=== PATIENT | female | born 1995 | race African-American/Black ===

== ENCOUNTER 2017-06-11 17:15 | Emergency (ER) | payer OTHER ==
[2017-06-11] MEDS ORDERED: FAMOTIDINE 20 MG/50 ML IVPB 20 MG/50 ML MG IVPB ONE ×2 (17:17→17:50)
[2017-06-11] MEDS ORDERED: SODIUM CHLORIDE 1,000 ML IV STA (17:17)
[2017-06-11] MEDS ORDERED: methylPREDNISolone NA SUCC 125 MG/2 ML VIAL IVPB ONE (17:17)
[2017-06-11 17:19] VITALS: BP 151/92; PULSE 97; TEMP 98.6; BMI 23.6
--- NOTE | 2017-06-11 17:22 | PDOC ---
Rapid Medical Evaluation Chief Complaint: Allergic Reaction Time Seen by Provider: 06/11/17 17:15 Medical Evaluation: Allergies Allergy/AdvReac Type Severity Reaction Status Date / Time No Known Allergies Allergy Verified 08/29/12 09:49 06/11/17 17:18 The patient presents with a chief complaint of: [Itching to the eyes, weird sensation in throat, shakiness, had dental surgery today. Is allergic to PCN, took amoxicillin at 4:30pm. Allergic reaction. ] I have performed a brief in-person evaluation of this patient. Pertinent physical exam findings: vss, [Right sided Facial edema ( from surgery )? Lungs clear, RRR. Erythema to chest. Wheal to face. ] I have ordered the following: [Labs, IV, Saline lock, Pepcid, solumedrol, benadryl. ] The patient will proceed to the ED for further evaluation. Discharge Disposition - Diagnosis Allergic reaction - Referrals - Patient Instructions - Post Discharge Activity
[2017-06-11] MEDS ORDERED: predniSONE 20 MG TABLET (UD) PO ONE (17:41)
[2017-06-11] MEDS ORDERED: predniSONE 20 MG TABLET (UD) ONE (17:50)
[2017-06-11] MEDS ORDERED: DEXAMETHASONE SOD PHOSPHATE 20 MG/5 ML VIAL IVPB ONE (17:58)
--- NOTE | 2017-06-11 18:08 | PDOC ---
History of Present Illness - History of Present Illness Initial Comments: 06/11/17 18:18 The patient is a 21 year old female with no significant PMH who presents to the emergency department with an allergic reaction today. The patient has a known allergy to penicillins. The patient reports throat itching, hives, and itchiness after taking amoxicillin today. The patient denies fever, chills, nausea, vomit, diarrhea and constipation. Allergies: NKA Past surgical history: None reported. Social history: No reported alcohol, cigarette or drug use. PCP: Dr. Shearer <Odalis Gonsalves - Last Filed: 06/11/17 18:21> - General History Source: Patient, Family Exam Limitations: No Limitations <Freedom Gallagher - Last Filed: 06/11/17 18:57> - General Chief Complaint: Allergic Reaction Stated Complaint: ALLERGIC REACTION Time Seen by Provider: 06/11/17 17:15 Past History <Odalis Gonsalves - Last Filed: 06/11/17 18:21> - Past Medical History COPD: No - Suicide/Smoking/Psychosocial Hx Smoking Status: No Smoking History: Never smoked Have you smoked in the past 12 months: No Number of Cigarettes Smoked Daily: 0 Information on smoking cessation initiated: No Hx Alcohol Use: No Drug/Substance Use Hx: No Substance Use Type: None <Freedom Gallagher - Last Filed: 06/11/17 18:57> - Past Medical History Allergies/Adverse Reactions: Allergies Allergy/AdvReac Type Severity Reaction Status Date / Time Penicillins Allergy Verified 06/11/17 17:20 Home Medications: Ambulatory Orders Ibuprofen [Motrin] 400 mg PO QID #20 tablet 08/29/12 No Home Medications 0 dose .ROUTE UTDICT 08/29/12 Review of Systems - Review of Systems Able to Perform ROS?: Yes Comments:: 06/11/17 18:21 GENERAL/CONSTITUTIONAL: No fever or chills. No weakness. HEAD, EYES, EARS, NOSE AND THROAT: No change in vision. No ear pain or discharge. No sore throat. CARDIOVASCULAR: No chest pain or shortness of breath. RESPIRATORY: No cough, wheezing, or hemoptysis. GASTROINTESTINAL: No nausea, vomiting, diarrhea or constipation. GENITOURINARY: No dysuria, frequency, or change in urination. MUSCULOSKELETAL: No joint or muscle swelling or pain. No neck or back pain. SKIN: No rash NEUROLOGIC: No headache, vertigo, loss of consciousness, or change in strength/ sensation. ENDOCRINE: No increased thirst. No abnormal weight change. HEMATOLOGIC/LYMPHATIC: No anemia, easy bleeding, or history of blood clots. ALLERGIC/IMMUNOLOGIC: (+) Itchiness. (+) Hives. <Odalis Gonsalves - Last Filed: 06/11/17 18:21> *Physical Exam - Vital Signs Last Vital Signs Temp Pulse Resp BP Pulse Ox 98.6 F 97 H 18 151/92 100 06/11/17 17:17 06/11/17 17:17 06/11/17 17:17 06/11/17 17:17 06/11/17 17:17 - Physical Exam Comments: 06/11/17 18:09 GENERAL: Awake, alert, and fully oriented, in no acute distress HEAD: No signs of trauma EYES: PERRLA, EOMI, sclera anicteric, conjunctiva clear ENT: Auricles normal inspection, hearing grossly normal, nares patent, oropharynx clear without exudates. Moist mucosa NECK: Normal ROM, supple, no lymphadenopathy, JVD, or masses LUNGS: Breath sounds equal, clear to auscultation bilaterally. No wheezes, and no crackles HEART: Regular rate and rhythm, normal S1 and S2, no murmurs, rubs or gallops ABDOMEN: Soft, nontender, normoactive bowel sounds. No guarding, no rebound. No masses EXTREMITIES: Normal range of motion, no edema. No clubbing or cyanosis. No cords, erythema, or tenderness NEUROLOGICAL: Cranial nerves II through XII grossly intact. Normal speech. SKIN: Warm, Dry, normal turgor, no rashes or lesions noted. <Odalis Gonsalves - Last Filed: 06/11/17 18:21> - Vital Signs Last Vital Signs Temp Pulse Resp BP Pulse Ox 98.6 F 97 H 18 151/92 100 06/11/17 17:17 06/11/17 17:17 06/11/17 17:17 06/11/17 17:17 06/11/17 17:17 <Freedom Gallagher - Last Filed: 06/11/17 18:57> ED Treatment Course - Medications Given in the ED: ED Medications Discontinued Medications Generic Name Dose Route Start Last Admin Trade Name Freq PRN Reason Stop Dose Admin Diphenhydramine HCl 50 mg 06/11/17 17:17 06/11/17 17:55 Benadryl Injection - IVPB 06/11/17 17:18 50 mg ONCE ONE Administration Famotidine/Sodium Chloride 20 mg in 50 mls @ 100 mls/hr 06/11/17 17:17 17:56 Pepcid 20 Mg Premixed Ivpb - IVPB 06/11/17 17:46 100 mls/hr ONCE ONE Administration Methylprednisolone Sodium Succinate 125 mg 06/11/17 17:17 06/11/17 17:56 Solu-Medrol - IVPB 06/11/17 17:18 Not Given ONCE ONE Prednisone 60 mg 06/11/17 17:41 06/11/17 17:56 Deltasone - PO 06/11/17 17:42 60 mg ONCE ONE Administration <Odalis Gonsalves - Last Filed: 06/11/17 18:21> - Medications Given in the ED: ED Medications Discontinued Medications Generic Name Dose Route Start Last Admin Trade Name Freq PRN Reason Stop Dose Admin Diphenhydramine HCl 50 mg 06/11/17 17:17 06/11/17 17:55 Benadryl Injection - IVPB 06/11/17 17:18 50 mg ONCE ONE Administration Famotidine/Sodium Chloride 20 mg in 50 mls @ 100 mls/hr 06/11/17 17:17 17:56 Pepcid 20 Mg Premixed Ivpb - IVPB 06/11/17 17:46 100 mls/hr ONCE ONE Administration Methylprednisolone Sodium Succinate 125 mg 06/11/17 17:17 06/11/17 17:56 Solu-Medrol - IVPB 06/11/17 17:18 Not Given ONCE ONE Prednisone 60 mg 06/11/17 17:41 06/11/17 17:56 Deltasone - PO 06/11/17 17:42 60 mg ONCE ONE Administration <Freedom Gallagher - Last Filed: 06/11/17 18:57> Medical Decision Making - Medical Decision Making 06/11/17 18:04 A portion of this note was documented by scribe services under my direction. I have reviewed the details of the note, within reason, and agree with the documentation with the following case summary and management plan written by me. Patient treated in the ED. Nursing notes are reviewed and incorporated into the medical decision-making. Vital signs reviewed. Peripheral IV access obtained by the nurse, laboratory studies are drawn and sent, reviewed and interpreted by myself. Vital Signs Temp Pulse Resp BP Pulse Ox 98.6 F 97 H 18 151/92 100 06/11/17 17:17 06/11/17 17:17 06/11/17 17:17 06/11/17 17:17 06/11/17 17:17 21-year-old female with no past medical history presents with ALLERGIC reaction. The patient underwent a dental procedure and was given a prescription amoxicillin. The patient has a history of penicillin ALLERGY. After taking amoxicillin she started developing throat itching and hives and itchiness. Denies vomiting, chest pain. Patient's oropharynx is clear and is no evidence of swelling. We'll need to give steroids, Benadryl, Pepcid, IV fluids and reassess. We'll observe the patient at the symptoms are improved and there is no evidence of anaphylaxis, the patient can be discharged. I instructed patient to stop taking amoxicillin. 06/11/17 18:57 Case signed out to Dr. Rueda for further management and disposition. <Freedom Gallagher - Last Filed: 06/11/17 18:57> *DC/Admit/Observation/Transfer - Attestations Scribe Attestion: 06/11/17 18:10 Documentation prepared by Odalis Gonsalves, acting as medical coding auditor for Freedom Gallagher MD. <Odalis Gonsalves - Last Filed: 06/11/17 18:21> <Freedom Gallagher - Last Filed: 06/11/17 18:57> Diagnosis at time of Disposition: Allergic reaction - Referrals Referrals: Zoe Shearer MD [Primary Care Provider] -
[2017-06-11] MEDS ORDERED: DEXAMETHASONE SOD PHOSPHATE 10 MG/1 ML VIAL ONE (19:15)
--- NOTE | 2017-06-11 21:05 | PDOC ---
*Physical Exam - Vital Signs Last Vital Signs Temp Pulse Resp BP Pulse Ox 98.6 F 97 H 18 151/92 100 06/11/17 17:17 06/11/17 17:17 06/11/17 17:17 06/11/17 17:17 06/11/17 17:17 - Physical Exam Vascular Pulses: Femoral (R): 4+, Femoral (L): 4+, Carotid (R): 4+, Carotid (L) : 4+, Dorsalis-Pedis (R): 4+, Doralis-Pedis (L): 4+ Deep Tendon Reflexes: Ankle (L): 0 ED Treatment Course - Medications Given in the ED: ED Medications Discontinued Medications Generic Name Dose Route Start Last Admin Trade Name Booneq PRN Reason Stop Dose Admin Dexamethasone Sodium Phosphate 10 mg 06/11/17 17:58 06/11/17 19:18 Decadron Injection - IVPB 06/11/17 17:59 10 mg ONCE ONE Administration Diphenhydramine HCl 50 mg 06/11/17 17:17 06/11/17 17:55 Benadryl Injection - IVPB 06/11/17 17:18 50 mg ONCE ONE Administration Famotidine/Sodium Chloride 20 mg in 50 mls @ 100 mls/hr 06/11/17 17:17 17:56 Pepcid 20 Mg Premixed Ivpb - IVPB 06/11/17 17:46 100 mls/hr ONCE ONE Administration Sodium Chloride 1,000 mls @ 1,000 mls/hr 06/11/17 17:17 06/11/17 17:56 Normal Saline - IV 06/11/17 18:16 1,000 mls/hr ASDIR STA Administration Methylprednisolone Sodium Succinate 125 mg 06/11/17 17:17 06/11/17 17:56 Solu-Medrol - IVPB 06/11/17 17:18 Not Given ONCE ONE Prednisone 60 mg 06/11/17 17:41 06/11/17 17:56 Deltasone - PO 06/11/17 17:42 60 mg ONCE ONE Administration Medical Decision Making - Medical Decision Making 06/11/17 20:59 Pt seen/examined. Sxs have completely resolved, feeling well, wishes to go home. No SOB, no rash, clear oropharynx, clear lungs. Will prescribe epi pen and prednisone 40mg daily x4 days. Told to avoid penicillin/amoxicillin in the future. Stable for discharge. *DC/Admit/Observation/Transfer Diagnosis at time of Disposition: Allergic reaction - Discharge Dispostion Disposition: HOME Condition at time of disposition: Improved Admit: No - Prescriptions Prescriptions: Epinephrine (Epi-Pen 0.3MG) [Epipen 0.3MG -] 0.3 mg IM ASDIR #2 pens Prednisone [Deltasone -] 40 mg PO DAILY 4 Days #4 tablet - Referrals Referrals: Zoe Shearer MD [Primary Care Provider] - - Patient Instructions Printed Discharge Instructions: DI for Adverse Drug Reaction -- Allergic Additional Instructions: You were seen in the ER for allergic reaction to penicillin (amoxicillin). NEVER TAKE THIS MEDICATION AGAIN. Take 40mg of prednisone for the next 4 days. You have also been prescribed an epipen. Please use it if you have a severe allergic reaction in the future. Follow up with your primary care doctor. Return to the ER if you have shortness of breath or worsening symptoms. - Post Discharge Activity
== END 2017-06-11 21:38 | disposition home or self-care (01) ==
LOC: JER 17:15
PROC: 3E033GC Introduction of Other Therapeutic Substance into Peripheral Vein, Percutaneous Approach (ICD-10-PCS; principal; 2017-06-11)
PROC: 3E033GC Introduction of Other Therapeutic Substance into Peripheral Vein, Percutaneous Approach (ICD-10-PCS; 2017-06-11)
PROC: 3E0333Z Introduction of Anti-inflammatory into Peripheral Vein, Percutaneous Approach (ICD-10-PCS; 2017-06-11)
DX: L50.0 Allergic urticaria (principal); T36.0X5A Adverse effect of penicillins, initial encounter; Y92.89 Other specified places as the place of occurrence of the external cause; Z88.0 Allergy status to penicillin
CPT/HCPCS: 96365; 96375; 99282-25

== ENCOUNTER 2018-07-07 19:29 | Emergency (ER) | payer OTHER ==
[2018-07-07 19:39] VITALS: BP 125/71; PULSE 100; TEMP 98.2; BMI 25.4
[2018-07-07] MEDS ORDERED: DIPHTH,PERTUSS(ACELL),TET 0.5 ML DISP.SYRIN IM ONE ×2 (20:33→20:42)
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
== END 2018-07-07 20:55 | disposition home or self-care (01) ==
LOC: JERFT 19:29
PROC: 3E0234Z Introduction of Serum, Toxoid and Vaccine into Muscle, Percutaneous Approach (ICD-10-PCS; principal; 2018-07-07)
DX: S61.251A Open bite of left index finger without damage to nail, initial encounter (principal); Y04.1XXA Assault by human bite, initial encounter; Y93.89 Activity, other specified; Y92.89 Other specified places as the place of occurrence of the external cause; Y99.8 Other external cause status; Y07.9 Unspecified perpetrator of maltreatment and neglect
CPT/HCPCS: 73140-TC-RT-FY; 90471; 90715; 99281-25

== ENCOUNTER 2018-07-09 09:51 | Emergency (ER) | payer OTHER ==
[2018-07-09 10:17] VITALS: BP 111/75; PULSE 75; TEMP 98.8; BMI 26.4
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
== END 2018-07-09 10:53 | disposition home or self-care (01) ==
LOC: JERFT 09:51
DX: S61.200D Unspecified open wound of right index finger without damage to nail, subsequent encounter (principal); S61.250D Open bite of right index finger without damage to nail, subsequent encounter; Y04.1XXD Assault by human bite, subsequent encounter
CPT/HCPCS: 99281-25

== ENCOUNTER 2020-08-19 11:15 | Emergency (ER) | payer OTHER ==
[2020-08-19 11:42] VITALS: BP 133/88; PULSE 84; TEMP 99.8; BMI 29.0
[2020-08-19] MEDS ORDERED: FAMOTIDINE 10 MG TABLET PO ONE (11:55)
[2020-08-19] MEDS ORDERED: diphenhydrAMINE HCL 25 MG CAPSULE (FP) PO ONE (11:55)
[2020-08-19] MEDS ORDERED: diphenhydrAMINE HCL 50 MG CAPSULE ONE (12:05)
[2020-08-19] MEDS ORDERED: FAMOTIDINE 20 MG TABLET ONE (12:05)
== END 2020-08-19 12:32 | disposition home or self-care (01) ==
LOC: FER 11:15
DX: R21 Rash and other nonspecific skin eruption (principal)
CPT/HCPCS: 99284-25

== ENCOUNTER 2021-03-09 10:30 | Emergency (ER) | payer BC, OTHER ==
[2021-03-09 10:37] VITALS: BP 140/99; PULSE 82; TEMP 97.3; BMI 29.2
[2021-03-09 13:04] LABS: BASO % 0.5 % (0-2.0); EOS % 0.7 % (0-4.5); HEMATOCRIT 41.3 % (32.4-45.2); HEMOGLOBIN 14.3 GM/dL (10.7-15.3); MCH 29.9 pg (25.7-33.7); MCHC 34.7 g/dl (32.0-36.0); MEAN PLT VOLUME 7.6 fl (7.5-11.1); MONO % 13.8 % (3.8-10.2); PLATELET COUNT 404 10^3/uL (134-434); RDW 13.3 % (11.6-15.6); WHITE BLOOD COUNT 4.4 K/mm3 (4.0-10.0)
[2021-03-09 13:24] LABS: CHLORIDE 106 mmol/L (98-107); SODIUM 138 mmol/L (136-145)
[2021-03-09 13:26] LABS: ALBUMIN 3.7 g/dl (3.4-5.0)
[2021-03-09 13:27] LABS: ANION GAP 8 MMOL/L (8-16); CALCIUM 9.9 mg/dL (8.5-10.1); CO2 24 mmol/L (21-32); GLUCOSE,RANDOM 85 mg/dL (74-106); MAGNESIUM 2.1 mg/dL (1.8-2.4)
[2021-03-09 13:30] LABS: SGOT/AST 17 U/L (15-37); SGPT/ALT 23 U/L (13-61)
[2021-03-09 13:31] LABS: CREATININE 0.7 mg/dL (0.55-1.3)
[2021-03-09 13:32] LABS: BILIRUBIN,TOTAL 0.4 mg/dL (0.2-1); TOT PROT 8.3 g/dl (6.4-8.2)
[2021-03-09 13:33] LABS: ALK PHOS 85 U/L (45-117)
== END 2021-03-09 14:27 ==
LOC: JER 10:30
DX: R00.2 Palpitations (principal); R55 Syncope and collapse
CPT/HCPCS: 36415; 80053; 82550; 83735; 84443; 84484; 84703; 85025; 93005; 93010; 99284-25

== ENCOUNTER 2022-04-23 06:17 | Emergency (ER) | payer BC ==
[2022-04-23 06:25] VITALS: BP 143/92; PULSE 80; RESP 18; TEMP 99.3; BMI 29.2
[2022-04-23] MEDS ORDERED: METOCLOPRAMIDE HCL 10 MG TABLET (FP) PO ONE ×2 (06:49→06:54)
[2022-04-23] MEDS ORDERED: KETOROLAC TROMETHAMINE 60 MG/2 ML VIAL IM ONE (06:49)
[2022-04-23] MEDS ORDERED: KETOROLAC TROMETHAMINE 60 MG/2 ML VIAL ONE (06:54)
[2022-04-23] MEDS ORDERED: ACETAMINOPHEN 500 MG TABLET (FP) PO ONE (06:58)
[2022-04-23] MEDS ORDERED: ACETAMINOPHEN 500 MG TABLET (FP) ONE (07:00)
[2022-04-23 08:16] LABS: HEMOGLOBIN 13.9 G/dL (10.7-15.3); MCH 29.7 pg (25.7-33.7); MCHC 33.8 g/dl (32.0-36.0); MEAN CELL VOLUME 87.9 fl (80-96); MEAN PLT VOLUME 7.7 fl (7.5-11.1); PLATELET COUNT 396.8 10^3/uL (134-434); RBC 4.67 10^6/uL (3.60-5.2); RDW 13.7 % (11.6-15.6); WHITE BLOOD COUNT 5.1 10^3/uL (4.0-10.8)
[2022-04-23 08:22] LABS: PLATELET ESTIMATE ADEQUATE
[2022-04-23 08:29] LABS: ALBUMIN 3.9 g/dl (3.4-5.0); BILIRUBIN,TOTAL 0.9 mg/dl (0.2-1); CALCIUM 9.2 mg/dl (8.5-10); CREATININE 0.7 mg/dl (0.55-1.3); TOT PROT 7.6 g/dl (6.4-8.2)
== END 2022-04-23 09:42 | disposition home or self-care (01) ==
LOC: FER 06:17
DX: R00.2 Palpitations (principal); R51.9 Headache, unspecified
CPT/HCPCS: 36415; 80053; 84484; 85027; 93005; 99284-25